=== PATIENT | female | born 1995 | race Two or more races ===

== ENCOUNTER 2022-02-22 23:37 | Emergency (ER) | payer OTHER ==
[~2022-02-22] VITALS: Ht 157.5 cm; Wt 104.3 kg
[2022-02-23] MEDS ORDERED: FLOVENT HFA12 GM IH (04:55)
[2022-02-23] MEDS ORDERED: PROVENTIL HFA6.7 GM IH (04:55)
[2022-02-23] MEDS ORDERED: MUCINEX D ER 11 EACH PO (04:57)
== END 2022-02-23 | disposition home or self-care (01) ==
LOC: ER 23:37
DX: J45.901 Unspecified asthma with (acute) exacerbation (principal); I10 Essential (primary) hypertension; Z88.6 Allergy status to analgesic agent; Z88.8 Allergy status to other drugs, medicaments and biological substances; Z20.822 Contact with and (suspected) exposure to COVID-19